=== PATIENT | male | born 1955 | race Caucasian/White ===

== ENCOUNTER → 2017-12-26 09:12 | Outpatient (CLI) | payer MEDICAID, SELFPAY ==
[2017-12-26 10:21] LABS: Blood Urea Nitrogen 11 mg/dL (7-18); Creatinine,Serum 1.02 mg/dL (0.70-1.30); Estimated Glomerular Filt Rate 74 ml/min (>60); GFR (African American) 90 ML/MIN (>60)
--- NOTE | 2017-12-26 10:36 | CT_ITS ---
CT abdomen pelvis w con CLINICAL INDICATION: ITS.REASON: GROSS HEMATURIA ORDERING PHYSICIAN: Ave Kelsey PATIENT AGE: 62 years COMPARISON: None TECHNIQUE: Axial images obtained with sagittal and coronal reformats. All CT scans at the facility use one or more dose reduction, viz: automated exposure control, ma/kV adjustment per patient size (including targeted exams where dose is matched to indication, i.e. head), or iterative reconstruction technique. PROCEDURE: Oral Contrast: None IV Contrast: 75 mL's of Isovue-370. FINDINGS: Lung base images are clear. Liver, gallbladder, spleen, adrenal glands, and pancreas has an unremarkable appearance. No renal or ureteral calculus. No hydronephrosis. No renal mass. No intestinal obstruction or free air. Unremarkable appendix. No evidence of diverticulitis. No pelvic mass or abnormal fluid collection. 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 Sclerosis of left femoral head also noted consistent with avascular necrosis. These findings are somewhat worse on the right and unchanged on the left. There is mild thickening of the urinary bladder anteriorly and may be due to nondistention. IMPRESSION: 1. No renal mass renal calculi or ureteral calculi. 2. 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 Left femoral avascular necrosis also suspected not significant changed
== END ==
PROVIDERS: PCP Nurse Practitioner Family; Visit Provider Nurse Practitioner Family
DX: R31.0 Gross hematuria (principal)
CPT/HCPCS: 36415; 74177; 82565; 84520; Q9967

== ENCOUNTER → 2018-01-09 14:56 | Outpatient (CLI) | payer MEDICAID, SELFPAY ==
--- NOTE | 2018-01-09 15:02 | XR_ITS ---
XR hip RT 2-3V w/pelvis HISTORY: ITS.REASON: IDIOPATHIC ASEPTIC NECROSIS BILAT FEMUR ORDERING PHYSICIAN: Ave Kelsey PATIENT AGE: 62 years COMPARISON: 12/26/2017 FINDINGS: Cortical collapse noted involving the right femoral head with mixture of sclerosis and lucency in the subchondral region consistent with advanced avascular microcyst with some mild dysplastic changes of the femoral head with osteoarthritic changes of the right hip. IMPRESSION: Advanced avascular necrosis of the right femoral head with associated dysplastic changes and osteoarthritis of the right hip. This would represent a Ficat st6ge 4 avascular necrosis of the femoral head
--- NOTE | 2018-01-09 15:02 | XR_ITS ---
XR hip LT 2-3V w/pelvis HISTORY: ITS.REASON: IDIOPATHIC ASEPTIC NECROSIS BILAT FEMUR ORDERING PHYSICIAN: Ave Kelsey PATIENT AGE: 62 years COMPARISON: None FINDINGS: No fracture or dislocation is evident. No significant degenerative change. No subchondral lucency evident. There is minimal sclerosis of the left femoral head corresponding to the CT abnormality. This is better delineated on the CT. IMPRESSION: Minimal sclerosis of left femoral head which may be due to early avascular necrosis MRI may confirm
== END ==
PROVIDERS: PCP Nurse Practitioner Family; Visit Provider Nurse Practitioner Family
DX: M87.052 Idiopathic aseptic necrosis of left femur (principal); M87.051 Idiopathic aseptic necrosis of right femur
CPT/HCPCS: 73502

== ENCOUNTER → 2018-02-01 08:49 | Outpatient (CLI) | payer MEDICAID, SELFPAY ==
--- NOTE | 2018-02-01 08:54 | MR_ITS ---
MR hip LT wo con Ordering Physician: Ken Jacobsen MD Patient Age: 62 years: Male HISTORY: ITS.REASON: IDIOPATHIC ASEPTIC NECROSIS OF LEFT FEMUR Bilateral AVN hip pain TECHNIQUE: Multiplanar multisequence imaging includes both hips; but attention and additional sagittal views of left hip included COMPARISON :CT abdomen/pelvis December 26, [address] August 2015 FINDINGS severe AVN right hip and arthritic changes right hip. Mild AVN left hip, with left hip joint space maintained Right hip. Findings reflect with Sequela of prominent long-standing AVN right hip. Flattening,, collapse & deformity of the superior aspect of broad deformed right femoral head. Prominent large geographic area of abnormal signal basically matches the prominent radiographic abnormality at superior right femoral head seen on plain film. There also appear to be prominent degenerative arthritic changes right hip joint which have since subsequent, developed & yields additional features including severe joint space right hip narrowing, with resulting numerous generous subchondral subchondral cystic changes femoral head as well as roof of acetabulum., But also generous marginal osteophytes about the margin of the femoral head and hypertrophic lipping about the right acetabulum. The features yield abnormal signal not only involving femoral head but extending into the superior right femoral neck. Mild right joint effusion... Markedly deforming femoral head were also nicely seen on plain films from January 09 2018. & Majority of these findings are seen in 2016 only question slight additional progressive flattening the femoral head in the interval.. Today's study was performed primarily to evaluate left hip. . Left hip also demonstrates smaller area of Long-standing AVN is seen at superior left femoral head..... Femoral head contour remains normal. No flattening. No no collapse.. Hip joint space well maintained.. AVN is been present at left hip since on CTs 2015/2017 with I believe similar distribution pattern. No significant progression. Again area signal abnormality associated spanning the superior aspect of the femoral head (nicely demonstrated on sagittal images 02/19) ; with coronal view showed a smaller geographic area of abnormal extending to the cortex superior femoral head . Left hip joint spaces is well maintained with only borderline narrowing.. . The remainderosseous pelvis visualized appears satisfactory. Inferior sacrum included. Unremarkable. Only the inferior aspect of the SI joints and sacrum are included on axial views but unremarkable. No pelvic mass or fluid. Bladder wall upper normal thickness. IMPRESSION 1. Severe extensive changes/sequela of long-standing AVN Right Hip/Right Femoral Head. Flattening, collapse of superior right femoral head with severe ensuing arthritic changes right hip (Majority of these findings more present in 2016 with only slight interval progression.) 2.. Much Smaller area of long-standing AVN superior left hip/left femoral head .... Left femoral head remains normal contour. Left hip joint space fairly well maintained. ... Fairly Similar Size & distribution of left AVN I believe since 2016 CT
== END ==
PROVIDERS: PCP Nurse Practitioner Family; Visit Provider Family Medicine
DX: M87.052 Idiopathic aseptic necrosis of left femur (principal)
CPT/HCPCS: 73721

== ENCOUNTER → 2018-02-15 14:50 | Outpatient (CLI) | payer MEDICAID, SELFPAY ==
--- NOTE | 2018-02-15 14:55 | XR_ITS ---
XR chest 2V HISTORY: ITS.REASON: CHEST PAIN ORDERING PHYSICIAN: Ave Kelsey PATIENT AGE: 62 years COMPARISON: 11/30/2016 FINDINGS: The cardiomediastinal silhouette and pulmonary vascularity are within normal limits. The lungs are clear without infiltrates, suspicious nodules, or pleural effusions. The trachea is to the right of midline however the neck is tilted to the right and there is mild upper thoracic scoliosis convex left. No acute bony abnormalities. IMPRESSION: No acute finding
== END ==
PROVIDERS: PCP Nurse Practitioner Family; Visit Provider Nurse Practitioner Family
DX: R07.9 Chest pain, unspecified (principal)
CPT/HCPCS: 71046

== ENCOUNTER → 2018-08-07 14:12 | Outpatient (CLI) | payer MEDICAID, SELFPAY ==
[2018-08-07 16:27] LABS: Prostate Specific Ag Screen 1.4 ng/mL (0.0-4.0)
== END ==
PROVIDERS: Visit Provider Urology
DX: Z12.5 Encounter for screening for malignant neoplasm of prostate (principal); C61 Malignant neoplasm of prostate
CPT/HCPCS: 36415; G0103

== ENCOUNTER → 2018-10-23 16:12 | Outpatient (CLI) | payer MEDICAID, SELFPAY ==
--- NOTE | 2018-10-23 16:16 | XR_ITS ---
XR finger LT min 2V CLINICAL INDICATION: ITS.REASON: MASS OF FINGER OF LEFT HAND ORDERING PHYSICIAN: Ave Kelsey APRN PATIENT AGE: 63 years Comparison: None FINDINGS: No bony or joint abnormality. No soft tissue calcification or other significant anomalies IMPRESSION: Negative left fifth finger.
== END ==
PROVIDERS: PCP Nurse Practitioner Family; Visit Provider Nurse Practitioner Family
DX: R22.32 Localized swelling, mass and lump, left upper limb (principal)
CPT/HCPCS: 73140

== ENCOUNTER → 2019-05-16 13:40 | Outpatient (CLI) | payer OTHER, SELFPAY ==
--- NOTE | 2019-05-16 13:48 | XR_ITS ---
PROCEDURE: XR CHEST 2V CLINICAL HISTORY: COUGH COMPARISON: CXR CHEST(2 VIEWS-NOT PORTABLE) from 11/30/2016 CXR2V XR chest 2V from 02/15/2018 FINDINGS: The cardiomediastinal silhouette and pulmonary vascularity are within normal limits. The lungs are clear without infiltrates, suspicious nodules, or pleural effusions. There is mild biapical pleural thickening IMPRESSION: No change with no acute finding Dictated by: Sreedhar Melendez MD 05/16/2019 15:17 Electronically signed by Sreedhar Melendez MD in [place] 05/16/2019 15:17
== END ==
PROVIDERS: PCP Nurse Practitioner Family; Visit Provider Nurse Practitioner Family
DX: R05 Cough (principal)
CPT/HCPCS: 71046

== ENCOUNTER → 2020-01-08 07:45 | Outpatient (CLI) | payer OTHER, SELFPAY ==
--- NOTE | 2020-01-08 07:49 | CT_ITS ---
PROCEDURE: CT ABDOMEN PELVIS WO CON CLINICAL INDICATION: gross hematuria,rt flank pain hematuria x months COMPARISON: CT ABDPELW CT abdomen pelvis w con from 12/26/2017 TECHNIQUE: Axial images obtained with sagittal and coronal reformats. All CT scans at the facility use one or more dose reduction, viz: automated exposure control, ma/kV adjustment per patient size (including targeted exams where dose is matched to indication, i.e. head), or iterative reconstruction technique. FINDINGS: LOWER THORAX: No acute finding ABDOMEN & PELVIS: The liver, gallbladder, spleen, adrenal glands, pancreas, and kidneys have an unremarkable unenhanced appearance. There is mild thickening of the body and fundus of the stomach which is nonspecific. There is mild haziness of the central mesenteric fat. Unremarkable appendix. No evidence of intestinal obstruction free air or diverticulitis. The prostate is slightly prominent at 5 cm. Urinary bladder is mildly thickened possibly due to nondistention. Severe longstanding avascular necrosis with cortical collapse of the femoral head on the right once again noted with associated osteoarthritic changes not significantly changed. Subchondral sclerosis of the left femoral head consistent with avascular necrosis also not significantly changed. IMPRESSION: 1. No acute abdominal or pelvic findings. 2. Nonspecific thickening of the stomach which may be due to nondistention versus gastritis. 3. Mild haziness of the central mesenteric fat not significantly changed which could be seen with edema or inflammatory changes 4. Mild prominence of the prostate. Urinary bladder wall is slightly thickened which may be due to nondistention or cystitis. 5. Bilateral avascular necrosis of the hips more extensive on the right. Dictated by: Sreedhar Melendez MD 01/09/2020 08:45 Sreedhar Melendez MD in [place] 01/09/2020 08:45
== END ==
PROVIDERS: PCP Nurse Practitioner Family; Visit Provider Urology
DX: R31.0 Gross hematuria (principal); R10.9 Unspecified abdominal pain
CPT/HCPCS: 74176

== ENCOUNTER → 2021-06-24 14:08 | Outpatient (CLI) | payer OTHER, SELFPAY ==
--- NOTE | 2021-06-24 14:14 | XR_ITS ---
FINAL REPORT CLINICAL HISTORY: TOBACCO USE right back pain COMPARISON: May 16, 2019 FINDINGS: Two views of the chest were obtained. The heart size and pulmonary vascularity are within normal limits. The mediastinum is normal. No acute pulmonary abnormality is identified. There is no pneumothorax. The bony thorax is intact. IMPRESSION: No active cardiopulmonary disease. Reviewed, Interpreted and Dictated by Blake Constantino III, MD Transcribed by Maryjane Burton Authenticated by Blake Constantino III, MD on 06/24/2021 03:04:53 PM [facility]
== END ==
PROVIDERS: PCP Nurse Practitioner Family; Visit Provider Nurse Practitioner Family
DX: Z72.0 Tobacco use (principal)
CPT/HCPCS: 71046

== ENCOUNTER → 2021-07-20 14:12 | Outpatient (POV) | payer OTHER, SELFPAY ==
[2021-07-20 14:35] VITALS: BP 133/66; PULSE 75; RESP 18; TEMP 36.6; O2SAT 97; BMI 20.9
--- NOTE | 2021-07-20 14:52 | HMH.PMCON ---
Assessment and Plan (1) Osteoarthritis of right hip Status: Acute Category: Medical Code(s): M16.11 - Unilateral primary osteoarthritis, right hip (2) Sacroiliitis Status: Acute Category: Medical Code(s): M46.1 - Sacroiliitis, not elsewhere classified (3) Lumbar back pain with radiculopathy affecting right lower extremity Status: Acute Category: Medical Code(s): M54.16 - Radiculopathy, lumbar region - Assessment and plan all Dx Assessment and Plan for all problems:: This patient is a very pleasant 65-year-old white male who comes to our clinic today with complaint of right hip pain both anteriorly and posteriorly at times. Patient has had care with orthopedic surgery in the past including right hip intra-articular injections. Patient states the hip injections did help for some time. However, at some point they stopped helping. Patient was advised regarding right hip replacement. However, patient is not interested in having any surgery at this time. He comes to our clinic continue to complain of right hip pain posterior greater than anterior. Upon examination he has extreme point tenderness over the right SI joint. I discussed in detail the difference from the SI joint and the right hip joint. We could try a right SI joint injection to see if this calms down the pain. I instructed the patient and his that if this did not help then we would move forward with second opinion on the hip and/or lumbar MRI imaging. HPI - Data of Consult Consult date: 07/20/21 Requesting Physician: Kaleb Baker CRNA - Consult Narrative Reason for consult: Lumbar back pain. Left posterior hip pain. History of present illness: Mr. Murphy is a 65 year old male CC: Kaleb Baker CRNA [facility] History I have reviewed the patient's past medical history: Yes Medical History: Reports:: Anxiety, Cancer, Depression, Gastroesophageal Reflux Disease(GERD) Denies:: Diabetes Mellitus Type 1, Diabetes Mellitus Type 2, Internal Pacemaker, MRSA, Seizures *Have you ever received a pneumonia vaccine?: No *Have you received a flu vaccine this season?: No Other Medical History: Reports: Anemia, Sinus Problems. Denies: Blood Transfusion Reaction Laterality Cases: Bilateral: Tonsillectomy Other Surgeries: Yes: No Previous Surgery, Cancer Surgery, Colonoscopy. No: Pacemaker Amputation: No Fractures: No - *Social History Smoking Status: Current every day smoker Tobacco Type: cigarettes # Packs/Day (cigarettes): 1 #Yrs smoked (if former smoker): 0 Alcohol Intake: never Substance Use Type: denies use *Occupational Status:: disabled Housing: house Household Members: spouse *Travel in the last 8 weeks: None - Psychiatric History Pschychiatric History:: Reports:: Anxiety, Depression Family Hx:: Hypertension, Cancer, Diabetes Meds Home Medications Medication Instructions Recorded Confirmed Type benzonatate 100 mg capsule 100 mg PO TID PRN #14 cap 06/25/17 07/20/21 Rx cetirizine 10 mg capsule 10 mg PO ONCE PRN 06/25/17 07/20/21 History ferrous sulfate 325 mg (65 mg 325 mg PO ONCE tab 06/25/17 07/20/21 History iron) tablet folic acid 20 mg capsule 20 mg PO ONCE PRN 06/25/17 07/20/21 History omeprazole 20 mg capsule,delayed 20 mg PO ONCE 06/25/17 07/20/21 History release sertraline 25 mg tablet 37.5 mg PO Q24H tab 06/25/17 07/20/21 History Allergies Allergy/AdvReac Type Severity Reaction Status Date / Time meperidine [From Demerol] Allergy Intermediate I-HIVES/ITC Verified 12/31/19 13:51 H oxycodone [From Percocet] Allergy Intermediate I-HIVES/ITC Verified 12/31/19 13:51 H Objective Vital signs: Temp Pulse Resp BP Pulse Ox 97.9 F 75 18 133/66 97 07/20/21 14:35 07/20/21 14:35 07/20/21 14:35 07/20/21 14:35 07/20/21 14:35 Opioid Risk Tool - Opioid Risk Tool-Male Family hx alcohol abuse: Y Family hx illegal drugs: Y Family hx rx drug abuse: Y Personal hx alcohol abuse: N Pe
== END ==
PROVIDERS: Visit Provider Nurse Anesthetist, Certified Registered
DX: M16.11 Unilateral primary osteoarthritis, right hip (principal); M46.1 Sacroiliitis, not elsewhere classified; M54.16 Radiculopathy, lumbar region
CPT/HCPCS: 99202; G0463

== ENCOUNTER 2021-07-23 11:24 | Day surgery (SDC) | payer OTHER, SELFPAY ==
[2021-07-23 11:32] VITALS: BP 153/53; PULSE 71; RESP 20; TEMP 36.4; O2SAT 99; BMI 20.9
[2021-07-23 11:48] VITALS: BP 133/67; PULSE 73; RESP 20; O2SAT 98
[2021-07-23 11:49] VITALS: BP 133/67; PULSE 73; RESP 20; O2SAT 99
--- NOTE | 2021-07-23 11:52 | P.PCN_ITS ---
- Procedure Date: 07/23/21 Time: 11:52 Anesthesiologist:: Kaleb Baker CRNA Complications:: None Pre-procedure Diagnosis:: Right sacroiliitis Post-procedure Diagnosis:: Same Indications for Procedure:: This patient is a pleasant 65-year-old white male that I saw earlier in the week in our clinic for evaluation regarding posterior right hip pain. Patient has had anterior hip pain in the past with intra-articular hip injections which have helped to some degree. However the last injection into the hip joint was not successful. Upon examination in the office patient has extreme point tenderness over the right SI joint. I discussed at length with him and his regarding the SI joint pain. Could be causing some anterior hip pain as well. Patient describes the pain as constant, dull, aching. Patient states the pain increases when trying to ambulate any sort of distance. He rates the pain 9/10. Procedure Details:: Procedure: Right sacroliliac joint injection under fluoroscopy Informed consent was obtained and the risk and benefits of the procedure were explained to the patient.~ The patient was taken to the procedure room and noninvasive monitors were placed including noninvasive blood pressure cuff and pulse oximeter.~ The patient was placed prone on the procedure table.~ The~ right hip was cleansed using Betadine as a cleansing solution.~ C-arm fluorosocpy was used to view the right SI joint.~ The skin and subcutaneous tissues were anesthetized using Lidocaine 1.5% and a 25-gauge needle.~ After this, a 22-gauge spinal needle was inserted under fluoroscopic guidance into the inferior aspect of the right SI joint.~ Omnipaque dye was injected and a good spread was seen throughout the joint.~ After this, approximately 5 mL of bu pivacaine 0.25% and Depo-Medrol 40 mg was incrementally injected into the sacroiliac joint.~ The patient tolerated the procedure well with no complications.~ The patient was observed in the Pain Clinic, then discharged home neurologically intact.~ Plan and Disposition:: Patient will follow up with us in the clinic for further evaluation.
[2021-07-23 11:53] VITALS: BP 156/72; PULSE 63; RESP 18; O2SAT 99
== END 2021-07-23 11:53 | disposition home or self-care (01) ==
LOC: SC.PAINP 11:25
PROVIDERS: PCP Nurse Practitioner Family; Visit Provider Nurse Anesthetist, Certified Registered
DX: M46.1 Sacroiliitis, not elsewhere classified (principal); M54.16 Radiculopathy, lumbar region; K21.9 Gastro-esophageal reflux disease without esophagitis; F41.9 Anxiety disorder, unspecified; F32.A Depression, unspecified; Z85.9 Personal history of malignant neoplasm, unspecified
CPT/HCPCS: 27096; G0260; J1040

== ENCOUNTER → 2021-08-30 11:16 | Outpatient (POV) | payer OTHER, SELFPAY ==
[2021-08-30 12:40] VITALS: BP 124/58; PULSE 73; RESP 18; TEMP 36.3; O2SAT 97; BMI 20.9
--- NOTE | 2021-08-30 14:35 | HMH.PAINSOAP ---
[facility] Pain Management SOAP Note Subjective:: Patient is a pleasant 65-year-old male who presents today for follow-up after a right SI injection. Patient is currently being treated for osteoarthritis of the right hip, right-sided sacroiliitis, chronic low back pain. After the procedure, patient had significant relief for about 80 to 90% that lasted for a week. Denies any issues after the procedure. Patient says that he was able to increase his activity during this 1 week of relief. Today, patient says that he has been having right upper buttock pain that radiates to his right leg. He cannot tolerate any prolonged activity such as sitting, standing, and walking. Rates pain today 7 out of 10. Patient was seen orthopedics who recommends right hip replacement. Patient states that he is not ready for any surgical intervention at this time. Review of Systems: General: No recent weight changes, no fever, no sleep disturbances Respiratory: No cough, no shortness of air, no recurring pulmonary infections Cardiovascular/peripheral vascular: No chest pain, no palpitations, no edema, no shortness of breath Gastrointestinal: No new onset incontinence, normal bowel movements reported Genitourinary: No new onset incontinence Musculoskeletal: Right hip pain Psychiatric: [Normal mood/affect] Neurological: [Denies weakness in extremities], [denies balance issues] Objective:: Physical Exam: General: Alert and oriented x3, no acute distress, pleasant and cooperative Lungs: Respirations even and unlabored, symmetrical chest expansion Eyes: PERRL Musculoskeletal: Limited range of motion of the right hip secondary to pain, right SI is positive for AMANDA, Rc's, Greenfield's, Gaenslen's, compression, and distraction. Neurological: Speech clear, no gross sensory deficit Assessment:: Sacroiliitis, osteoarthritis of the right hip Plan:: Patient is significant relief after the right SI injection that lasted for a week. Patient has tried and failed conservative therapy such as oral medication, physical therapy, and home exercises. We will schedule the patient for a repeat right SI injection. Risks and benefits of the procedure have been explained to the patient. Patient would like to proceed with the procedure. I will also start the patient on meloxicam 15 mg daily. Patient was taking Duexis that was helping him significantly however his insurance will not cover this medication. If the patient continues to get temporary relief after the right SI injection, patient might have to consider moving forward with surgical interventions. For our clinic, we can either do a right-sided SI RFA or a sacroiliac joint stabilization procedure. Patient has been instructed to contact the clinic with any concerns before the next appointment. Dr. Alonso has reviewed this note and agrees with this plan of care. This note was dictated using voice recognition software and make contain errors or omissions. [facility] History Medical History: Reports:: Anxiety, Cancer, Depression, Gastroesophageal Reflux Disease(GERD) Denies:: Diabetes Mellitus Type 1, Diabetes Mellitus Type 2, Internal Pacemaker, MRSA, Seizures *Have you ever received a pneumonia vaccine?: No *Have you received a flu vaccine this season?: No Other Medical History: Reports: Anemia, Sinus Problems. Denies: Blood Transfusion Reaction Laterality Cases: Bilateral: Tonsillectomy Other Surgeries: Yes: No Previous Surgery, Cancer Surgery, Colonoscopy. No: Pacemaker Amputation: No Fractures: No - *Social History Smoking Status: Current every day smoker Tobacco Type: cigarettes # Packs/Day (cigarettes): 1 #Yrs smoked (if former smoker): 0 Alcohol Intake: never Substance Use Type: denies use *Occupational Status:: unemployed Housing: house Household Members: spouse *Travel in the last 8 weeks: None - Psychiatric History Pschychiatric History:: Reports:: Anxiety, Depression Family Hx:: No significant family his
== END ==
PROVIDERS: Visit Provider Student in an Organized Health Care Education/Training Program
DX: M46.1 Sacroiliitis, not elsewhere classified (principal); M16.11 Unilateral primary osteoarthritis, right hip
CPT/HCPCS: 99212; G0463

== ENCOUNTER 2021-09-03 13:43 | Day surgery (SDC) | payer OTHER, SELFPAY ==
[2021-09-03 14:16] VITALS: BP 105/55; BP 135/58; PULSE 69; PULSE 70; RESP 18; RESP 20; TEMP 36.4; O2SAT 99; BMI 20.9
[2021-09-03 14:30] VITALS: BP 107/55; PULSE 67; RESP 18; O2SAT 98
--- NOTE | 2021-09-03 14:33 | HMH.PMPROC ---
- Procedure Date: 09/03/21 Time: 14:33 Anesthesiologist:: Jonathan Alonso MD Complications:: None Pre-procedure Diagnosis:: Sacroiliitis Post-procedure Diagnosis:: Same Indications for Procedure:: Patient is a pleasant 65-year-old white male who we are treating for right-sided hip pain. He is tender over the right SI joint. He has a positive Julia's test on the right side. He has a positive Tiara test on the right side. He has positive SI joint compression test on the right side. He presents for right SI joint injection under fluoroscopy today. Procedure Details:: Right SI joint injection under fluoroscopy Informed consent was obtained and the risks and benefits of the procedure was going to the patient. Patient was taken to the procedure room. Patient was placed prone on the procedure table. The right hip was prepped using ChloraPrep. The skin and subcutaneous tissues were anesthetized using lidocaine. I placed a 22-gauge spinal needle into the inferior aspect of the right SI joint. Needle placement was confirmed with dye. After this we injected 5 mL bupivacaine 0.25% and Depo-Medrol 40 mg into the right SI joint. The patient tolerated the procedure well with no complication. Plan and Disposition:: We will follow-up with him in 2 weeks. Will reevaluate symptoms at that time.
[2021-09-03 14:34] VITALS: BP 107/55; PULSE 74; RESP 18; O2SAT 98
== END 2021-09-03 14:38 | disposition home or self-care (01) ==
LOC: SC.PAINP 13:44
PROVIDERS: PCP Nurse Practitioner Family; Visit Provider Anesthesiology
DX: M46.1 Sacroiliitis, not elsewhere classified (principal); F41.9 Anxiety disorder, unspecified; F32.A Depression, unspecified; K21.9 Gastro-esophageal reflux disease without esophagitis; Z85.9 Personal history of malignant neoplasm, unspecified; Z72.0 Tobacco use; M19.90 Unspecified osteoarthritis, unspecified site
CPT/HCPCS: 27096; G0260; J1040; Q9966

== ENCOUNTER → 2021-09-23 13:31 | Outpatient (POV) | payer MEDICARE, OTHER, SELFPAY ==
[2021-09-23 13:47] VITALS: BP 120/59; PULSE 77; RESP 18; TEMP 36.6; O2SAT 97; BMI 20.9
--- NOTE | 2021-09-23 15:21 | HMH.PAINSOAP ---
[facility] Pain Management SOAP Note Subjective:: Patient is a pleasant 65-year-old male who presents today for follow-up after a right SI injection on 09/03/2021. Patient is currently being treated for sacroiliitis, right hip pain, osteoarthritis of the right hip. After the procedure, patient had significant relief of 90 to 100%. Patient has been able to increase his activity since the injection. He rates his pain today as 4 out of 10. He is also being managed with meloxicam 15 mg daily. Patient states that he has had significant relief with this medication. Denies any side effects from this medication. He is requesting refills on this medication. He is not on any scheduled medications. Patient has also seen orthopedics who recommends a right hip replacement. Patient states that he does not want to move forward with any surgical intervention at this time. He has had intra-articular hip injections in the past that provided 2 to 3 months of relief. He has not had this injection in a while. Review of Systems: General: No recent weight changes, no fever, no sleep disturbances Respiratory: No cough, no shortness of air, no recurring pulmonary infections Cardiovascular/peripheral vascular: No chest pain, no palpitations, no edema, no shortness of breath Gastrointestinal: No new onset incontinence, normal bowel movements reported Genitourinary: No new onset incontinence Musculoskeletal: Right hip pain Psychiatric: [Normal mood/affect] Neurological: [Denies weakness in extremities], [denies balance issues] Objective:: Physical Exam: General: Alert and oriented x3, no acute distress, pleasant and cooperative Lungs: Respirations even and unlabored, symmetrical chest expansion Eyes: PERRL Musculoskeletal: Limited range of motion of the right hip secondary to pain Neurological: Speech clear, no gross sensory deficit Assessment:: Sacroiliitis, osteoarthritis of the right hip, chronic right hip pain Plan:: Patient is significant relief after the right SI injection. He continues to have relief with this injection today. Rates his pain as 4 out of 10. In regards to his right hip, I discussed with the patient that we can certainly do intra-articular hip injections in our clinic. He states that in the past, they have did his hip injection medially/through his right groin. He states that he had discomfort for weeks after than injection. He was wondering if he ever schedules a hip injection, he would like a more lateral approach. We will refill his meloxicam 15 mg daily. We will provide 3 months worth of refill. Patient has been instructed to contact the clinic with any concerns before the next appointment. Dr. Alonso has reviewed this note and agrees with this plan of care. This note was dictated using voice recognition software and make contain errors or omissions. [facility] History Medical History: Reports:: Anxiety, Cancer, Depression, Gastroesophageal Reflux Disease(GERD) Denies:: Diabetes Mellitus Type 1, Diabetes Mellitus Type 2, Internal Pacemaker, MRSA, Seizures *Have you ever received a pneumonia vaccine?: No *Have you received a flu vaccine this season?: No Other Medical History: Reports: Anemia, Arthritis, Sinus Problems. Denies: Blood Transfusion Reaction Laterality Cases: Bilateral: Tonsillectomy Other Surgeries: Yes: No Previous Surgery, Cancer Surgery, Colonoscopy. No: Pacemaker Amputation: No Fractures: No - *Social History Smoking Status: Current every day smoker Tobacco Type: cigarettes # Packs/Day (cigarettes): 1 #Yrs smoked (if former smoker): 0 Alcohol Intake: never Substance Use Type: denies use *Occupational Status:: other Housing: house Household Members: spouse *Travel in the last 8 weeks: None - Psychiatric History Pschychiatric History:: Reports:: Anxiety, Depression Family Hx:: No significant family history
== END ==
PROVIDERS: Visit Provider Student in an Organized Health Care Education/Training Program
DX: M46.1 Sacroiliitis, not elsewhere classified (principal); M16.11 Unilateral primary osteoarthritis, right hip; G89.29 Other chronic pain
CPT/HCPCS: 99212; G0463

== ENCOUNTER → 2021-10-21 13:38 | Outpatient (POV) | payer MEDICARE, OTHER, SELFPAY ==
[2021-10-21 14:06] VITALS: BP 108/59; PULSE 79; RESP 17; TEMP 36.6; O2SAT 97; BMI 20.9
--- NOTE | 2021-10-23 08:35 | HMH.PAINSOAP ---
[facility] Pain Management SOAP Note Subjective:: Patient is a pleasant 66-year-old male who presents today for follow-up. Patient is currently being treated for right-sided sacroiliitis, right hip pain, osteoarthritis of the right hip. It is managing this patient with injective therapy. He has had an SI injection on the right side on 09/03/2021 that provided 90 to 100% relief. He does still have pain in his hip from his osteoarthritis. He has been evaluated by orthopedics who recommends right hip replacement. He is not interested in moving forward with any surgical intervention at this time. He states that he had intra-articular hip injections in the past that provided 2 to 3 months of relief. Is wanting to know if we can schedule this injection today. For his pain, we have started this patient on meloxicam 15 mg daily. He continuously take this medication as prescribed and is helping manage his pain. He rates his pain as 3 out of 10. He is also requesting refills on this medication. He is not on any scheduled medications. [facility] [id number]. Review of Systems: General: No recent weight changes, no fever, no sleep disturbances Respiratory: No cough, no shortness of air, no recurring pulmonary infections Cardiovascular/peripheral vascular: No chest pain, no palpitations, no edema, no shortness of breath Gastrointestinal: No new onset incontinence, normal bowel movements reported Genitourinary: No new onset incontinence Musculoskeletal: Right hip pain Psychiatric: [Normal mood/affect] Neurological: [Denies weakness in extremities], [denies balance issues] Objective:: Physical Exam: General: Alert and oriented x3, no acute distress, pleasant and cooperative Lungs: Respirations even and unlabored, symmetrical chest expansion Eyes: PERRL Musculoskeletal: Limited range of motion of the right hip secondary to pain Neurological: Speech clear, no gross sensory deficit Assessment:: Osteoarthritis of the right hip, sacroiliitis Plan:: Patient continues to have pain in his right hip. We will schedule the patient for a right hip intra-articular injection. In the past, patient states that they did the intra-articular hip injection medially that has caused him some discomfort for weeks after the injection. He is wanting to know if we can do his intra-articular hip injection with a lateral approach. We will refill the patient's meloxicam 15 mg daily. Patient has been instructed to contact the clinic with any concerns before the next appointment. Dr. Alonso has reviewed this note and agrees with this plan of care. This note was dictated using voice recognition software and make contain errors or omissions. [facility] History Medical History: Reports:: Anxiety, Cancer, Depression, Gastroesophageal Reflux Disease(GERD) Denies:: Diabetes Mellitus Type 1, Diabetes Mellitus Type 2, Internal Pacemaker, MRSA, Seizures *Have you ever received a pneumonia vaccine?: No *Have you received a flu vaccine this season?: No Other Medical History: Reports: Anemia, Arthritis, Sinus Problems. Denies: Blood Transfusion Reaction Laterality Cases: Bilateral: Tonsillectomy Other Surgeries: Yes: No Previous Surgery, Cancer Surgery, Colonoscopy. No: Pacemaker Amputation: No Fractures: No - *Social History Smoking Status: Current every day smoker Tobacco Type: cigarettes # Packs/Day (cigarettes): 1 #Yrs smoked (if former smoker): 0 Alcohol Intake: never Substance Use Type: denies use *Occupational Status:: other Housing: house Household Members: spouse *Travel in the last 8 weeks: None - Psychiatric History Pschychiatric History:: Reports:: Anxiety, Depression Family Hx:: No significant family history
== END ==
PROVIDERS: Visit Provider Student in an Organized Health Care Education/Training Program
DX: M46.1 Sacroiliitis, not elsewhere classified (principal); M16.11 Unilateral primary osteoarthritis, right hip
CPT/HCPCS: 99212; G0463

== ENCOUNTER 2021-12-07 12:35 | Day surgery (SDC) | payer MEDICARE, OTHER, SELFPAY ==
[2021-12-07 12:41] VITALS: BP 113/71; BP 119/64; PULSE 64; PULSE 74; RESP 20; TEMP 36.5; O2SAT 97; O2SAT 99; BMI 19.6
[2021-12-07 12:58] VITALS: BP 116/62; PULSE 70
[2021-12-07 13:12] VITALS: BP 117/80; PULSE 70; RESP 18; O2SAT 99
--- NOTE | 2021-12-07 13:15 | P.PCN_ITS ---
Procedure Date: 12/07/21 Time: 13:15 Anesthesiologist:: Kaleb Baker CRNA Complications:: None Pre-procedure Diagnosis:: Osteoarthritis right hip Post-procedure Diagnosis:: Same Indications for Procedure:: Patient is a pleasant 66-year-old male who comes to our clinic today for his initial right intra-articular hip injection. He reports pain right hip at all times. Pain increases with ambulation. He rates his pain 8/10. Procedure Details:: Details of the procedure were explained to the patient. The patient taken the procedure room placed in the supine position. The over the right groin was cleaned using chlorhexidine as a cleansing solution. Using fluoroscopy guidance a 3 and half inch 22-gauge spinal needle was used and the anterior approach to access the right hip joint. After negative aspiration 6 cc of solution was inj ected. This was 3 cc of 1% lidocaine +2 cc of 0.25% Marcaine and 40 mg of Depo- Medrol. Patient tolerated procedure without difficulty. There are no complications. Plan and Disposition:: Patient was discharged without incident.
--- NOTE | 2021-12-07 13:33 | US_ITS ---
FINAL REPORT TECHNIQUE: Sonographic images were obtained of the retroperitoneum. CLINICAL HISTORY: OTHER URINARY INCONTINENCE HX OF BLADDER FINDINGS: The right kidney measures 9.6 cm. The left kidney measures 10.3 cm. There is no evidence of renal mass or hydronephrosis. The spleen measures within normal limits. IMPRESSION: No acute process. Reviewed, Interpreted and Dictated by Blake Constantino III, MD Transcribed by Amrit Emmanuel Authenticated and [facility]
--- NOTE | 2021-12-07 13:41 | US_ITS ---
FINAL REPORT TECHNIQUE: Sonographic images were obtained of the urinary bladder. CLINICAL HISTORY: OTHER URINARY INCONTINENCE; history of bladder cancer FINDINGS: The urinary bladder measures 3.6 x 3.7 x 3.0 cm. Patient states they were unable to fill the bladder any further. There is bladder wall thickening that may be inflammatory. A left ureteral jet is visualized. IMPRESSION: Small volume bladder of uncertain significance. Reviewed, Interpreted and Dictated by Blake Constantino III, MD Transcribed by Amrit Emmanuel Authenticated and . [facility]
== END 2021-12-07 13:21 | disposition home or self-care (01) ==
PROVIDERS: PCP Nurse Practitioner Family; Visit Provider Nurse Anesthetist, Certified Registered
DX: M16.11 Unilateral primary osteoarthritis, right hip (principal)
CPT/HCPCS: 20610; 76770; 76857; J1040

== ENCOUNTER → 2021-12-23 13:18 | Outpatient (POV) | payer MEDICARE, OTHER, SELFPAY ==
[2021-12-23 13:36] VITALS: BP 109/61; PULSE 73; RESP 18; TEMP 36.6; O2SAT 97; BMI 19.6
--- NOTE | 2021-12-23 14:08 | EXP.PAIN.SOA ---
[facility] Pain Management SOAP Note Subjective:: Patient is a pleasant 66-year-old male who presents today for follow-up of right hip intra-articular injection on 12/07/2021. We are currently treating the patient for osteoarthritis of his right hip. Patient states that he has had significant improvement following this injection. He states he has had 80 to 90% relief of his pain symptoms and feels like it is continuing to help. Today the patient rates his pain a 2 out of 10. He states his pain is tolerable and primarily in his right hip. Patient has been able to increase his activity and ADLs following this injection. Patient typically uses a cane for ambulation however states that he has been able to use this less frequently and appears today in office without this device. Patient is not on any scheduled medications. He does state he uses meloxicam as needed to help with his symptoms. Patient denies any side effects to this medication. He states this medication does work well. His Jaun is [id number]. It has been reviewed and appropriate. Review of Systems: General: No recent weight changes, no fever, no sleep disturbances Respiratory: No cough, no shortness of air, no recurring pulmonary infections Cardiovascular/peripheral vascular: No chest pain, no palpitations, no edema, no shortness of breath Gastrointestinal: No new onset incontinence, normal bowel movements reported Genitourinary: No new onset incontinence Musculoskeletal: Right hip pain Psychiatric: [Normal mood/affect] Neurological: [Denies weakness in extremities], [denies balance issues] Objective:: Physical Exam: General: Alert and oriented x3, no acute distress, pleasant and cooperative Lungs: Respirations even and unlabored, symmetrical chest expansion Eyes: PERRL Musculoskeletal: Flexion and extension of right hip somewhat guarded secondary to pain, [antalgic gait noted] Neurological: Speech clear, no gross sensory deficit Assessment:: Osteoarthritis right hip Plan:: Patient has had significant improvement of his pain symptoms in his right hip following his intra-articular hip injection. At this time the patient is not needing additional injective therapy. We will follow-up with the patient in 1 month. Patient will return to clinic in 1 month for reevaluation of symptoms. Patient has been instructed to contact the clinic with any concerns before the next appointment. Dr. Alonso has reviewed this note and agrees with this plan of care. This note was dictated using voice recognition software and make contain errors or omissions. [facility] Medical History (Updated 12/07/21 @ 12:48 by Marie Kapadia RN) Bladder cancer Depression Social History Smoking Status: Current every day smoker tobacco type: cigarettes packs per day: 1 second hand exposure: Yes alcohol intake: never substance use type: denies use current occupational status: other Travel in the last 8 weeks: None household members: spouse housing: house current occupational exposures/hazards: No caffeine: No
== END ==
PROVIDERS: PCP Nurse Practitioner Family; Visit Provider Nurse Practitioner Family
DX: M16.11 Unilateral primary osteoarthritis, right hip (principal); Z72.0 Tobacco use; Z79.899 Other long term (current) drug therapy
CPT/HCPCS: 99212; G0463

== ENCOUNTER → 2022-01-20 13:28 | Outpatient (POV) | payer MEDICARE, OTHER, SELFPAY ==
[2022-01-20 13:56] VITALS: BP 111/61; PULSE 68; RESP 18; TEMP 36.6; O2SAT 97; BMI 19.6
--- NOTE | 2022-01-20 15:05 | EXP.PAIN.SOA ---
[facility] Pain Management SOAP Note Subjective:: Patient is a pleasant 66-year-old male who is here for medication refill and follow-up. Patient is currently being treated for osteoarthritis of the right hip. Patient is being managed with meloxicam 15 mg daily. We also have been managing the patient with injective therapy. He had his last right hip intra-articular injection on 12/07/2021. Still having significant relief from this. Patient denies any side effects from the medications. Patient denies any changes to the location and type of pain. Patient states that this is adequately helping manage their pain. Rates pain as 4 out of 10. [facility] number [id number]; patient is not on any scheduled medications. Drug screens have been reviewed and appropriate. Review of Systems: General: No recent weight changes, no fever, no sleep disturbances Respiratory: No cough, no shortness of air, no recurring pulmonary infections Cardiovascular/peripheral vascular: No chest pain, no palpitations, no edema, no shortness of breath Gastrointestinal: No new onset incontinence, normal bowel movements reported Genitourinary: No new onset incontinence Musculoskeletal: Right hip pain Psychiatric: [Normal mood/affect] Neurological: [Denies weakness in extremities], [denies balance issues] Objective:: Physical Exam: General: Alert and oriented x3, no acute distress, pleasant and cooperative Lungs: Respirations even and unlabored, symmetrical chest expansion Eyes: PERRL Musculoskeletal: Limited range of motion of the right hip secondary to pain Neurological: Speech clear, no gross sensory deficit Assessment:: Osteoarthritis of the right hip Plan:: We will continue the patient's meloxicam 15 mg daily. We will provide the patient with 2 months worth of refill. We will follow-up with the patient in 2 months. Patient is still having significant relief from his right hip intra-articular injection. Patient has been instructed to contact the clinic with any concerns before the next appointment. Dr. Alonso has reviewed this note and agrees with this plan of care. This note was dictated using voice recognition software and make contain errors or omissions. [facility] Medical History (Updated 12/07/21 @ 12:48 by Marie Kapadia RN) Bladder cancer Depression Social History Smoking Status: Current every day smoker tobacco type: cigarettes packs per day: 1 second hand exposure: Yes alcohol intake: never substance use type: denies use current occupational status: retired Travel in the last 8 weeks: None household members: spouse housing: house current occupational exposures/hazards: No caffeine: No
== END | disposition home or self-care (01) ==
PROVIDERS: Visit Provider Student in an Organized Health Care Education/Training Program
DX: M16.11 Unilateral primary osteoarthritis, right hip (principal); Z72.0 Tobacco use; Z79.899 Other long term (current) drug therapy
CPT/HCPCS: 99212; G0463

== ENCOUNTER → 2022-03-24 13:13 | Outpatient (POV) | payer MEDICARE, OTHER, SELFPAY ==
[2022-03-24 13:27] VITALS: BP 98/63; PULSE 72; RESP 18; O2SAT 98; BMI 20.3
--- NOTE | 2022-03-24 13:48 | EXP.PAIN.SOA ---
[facility] Pain Management SOAP Note Subjective:: Patient is a pleasant 66-year-old male who presents today for medication refill and follow-up. We are currently treating the patient for right hip osteoarthritis. Today the patient rates his pain a 4 out of 10. Patient denies any new trauma or injury. Patient denies any change location or type of pain he experiences. Patient is currently managed with meloxicam 15 mg daily. Patient has had in the past right hip intra-articular injections that provided significant relief. Patient is not on any scheduled medications. His Jaun is [id number]. Its been reviewed and appropriate. Review of Systems: General: No recent weight changes, no fever, no sleep disturbances Respiratory: No cough, no shortness of air, no recurring pulmonary infections Cardiovascular/peripheral vascular: No chest pain, no palpitations, no edema, no shortness of breath Gastrointestinal: No new onset incontinence, normal bowel movements reported Genitourinary: No new onset incontinence Musculoskeletal: Right hip pain Psychiatric: [Normal mood/affect] Neurological: [Denies weakness in extremities], [denies balance issues] Objective:: Physical Exam: General: Alert and oriented x3, no acute distress, pleasant and cooperative Lungs: Respirations even and unlabored, symmetrical chest expansion Eyes: PERRL Musculoskeletal: Flexion and extension of lumbar [spine] somewhat guarded secondary to pain, [antalgic gait noted] Neurological: Speech clear, no gross sensory deficit Assessment:: Right hip osteoarthritis Plan:: Patient continues to experience pain in his right hip however he is doing well with his current medication regimen. I will refill the patient's meloxicam 15 mg daily and provide a 3-month supply of this medication. Patient will return to clinic in 3 months for reevaluation of symptoms, medication refill and follow-up. Patient has been instructed to contact the clinic with any concerns before the next appointment. Dr. Alonso has reviewed this note and agrees with this plan of care. This note was dictated using voice recognition software and make contain errors or omissions. [facility] Disclaimer: The information contained in this section may have been updated after the patient was seen, as this information can be updated by other users. Medical History (Updated 12/07/21 @ 12:48 by Marie Kapadia RN) Bladder cancer Depression Social History Smoking Status: Current every day smoker tobacco type: cigarettes packs per day: 1 second hand exposure: Yes alcohol intake: never substance use type: denies use current occupational status: retired Travel in the last 8 weeks: None household members: spouse housing: house current occupational exposures/hazards: No caffeine: No
== END ==
PROVIDERS: PCP Nurse Practitioner Family; Visit Provider Nurse Practitioner Family
DX: M16.11 Unilateral primary osteoarthritis, right hip (principal); F17.210 Nicotine dependence, cigarettes, uncomplicated
CPT/HCPCS: 99212; G0463

== ENCOUNTER → 2022-06-20 13:32 | Outpatient (POV) | payer MEDICARE, OTHER, SELFPAY ==
[2022-06-20 13:57] VITALS: BP 127/68; PULSE 74; RESP 18; O2SAT 98; BMI 20.3
--- NOTE | 2022-06-20 14:08 | EXP.PAIN.SOA ---
[facility] Pain Management SOAP Note Subjective:: Patient is a pleasant 66-year-old male who presents today for follow-up. We are currently treating the patient for right hip osteoarthritis. Today the patient rates his pain a 6 out of 10. Patient denies any new trauma or injury. Patient denies any change to location or type of pain he experiences. Patient states his hip pain does cause significant pain that interferes with his activities of daily living such as cooking and cleaning. He states it does worsen as the day goes on and frequently causes interference with his sleeping habits. He states the pain will wake him up in the middle of the night. He does describe this as a aching, throbbing sensation that is worse with increased activity. Patient has previously had intra-articular hip injections that did provide significant relief. Patient is not on any scheduled medications. His Jaun is [id number]. Its been reviewed and appropriate. Review of Systems: General: No recent weight changes, no fever, no sleep disturbances Respiratory: No cough, no shortness of air, no recurring pulmonary infections Cardiovascular/peripheral vascular: No chest pain, no palpitations, no edema, no shortness of breath Gastrointestinal: No new onset incontinence, normal bowel movements reported Genitourinary: No new onset incontinence Musculoskeletal: Right hip pain Psychiatric: [Normal mood/affect] Neurological: [Denies weakness in extremities], [denies balance issues] Objective:: Physical Exam: General: Alert and oriented x3, no acute distress, pleasant and cooperative Lungs: Respirations even and unlabored, symmetrical chest expansion Eyes: PERRL Musculoskeletal: Flexion and extension of lumbar [spine] somewhat guarded secondary to pain, [antalgic gait noted] Neurological: Speech clear, no gross sensory deficit Assessment:: Osteoarthritis right hip Plan:: Patient continues to experience significant pain in his right hip with limited range of motion. I have discussed with the patient that he may benefit from repeat intra-articular hip injections. Risk and benefits were discussed with the patient and he would like to proceed forward with this plan of care. I will also order the patient compounding cream during today's visit as well as tizanidine 4 mg at bedtime with a 14-day supply. We will schedule the patient for a right intra-articular hip injection. Patient has been instructed to contact the clinic with any concerns before the next appointment. Dr. Alonso has reviewed this note and agrees with this plan of care. This note was dictated using voice recognition software and make contain errors or omissions. [facility] Disclaimer: The information contained in this section may have been updated after the patient was seen, as this information can be updated by other users. Medical History (Updated 12/07/21 @ 12:48 by Marie Kapadia RN) Bladder cancer Depression Social History Smoking Status: Current every day smoker tobacco type: cigarettes packs per day: 1 second hand exposure: Yes alcohol intake: never substance use type: denies use current occupational status: disabled Travel in the last 8 weeks: None household members: spouse housing: house current occupational exposures/hazards: No caffeine: No
== END | disposition home or self-care (01) ==
PROVIDERS: PCP Nurse Practitioner Family; Visit Provider Nurse Practitioner Family
DX: M16.11 Unilateral primary osteoarthritis, right hip (principal)
CPT/HCPCS: 99212; G0463

== ENCOUNTER 2022-06-28 11:11 | Day surgery (SDC) | payer MEDICARE, OTHER, SELFPAY ==
[2022-06-28 11:35] VITALS: BP 119/77; PULSE 72; RESP 18; TEMP 36.6; O2SAT 99; BMI 20.3
[2022-06-28 12:08] VITALS: BP 124/51; PULSE 76; RESP 18; O2SAT 99
[2022-06-28 12:10] VITALS: BP 121/59; PULSE 61; RESP 18; O2SAT 97
[2022-06-28 12:11] VITALS: BP 121/59; PULSE 61; RESP 18; O2SAT 97
--- NOTE | 2022-06-28 12:48 | EXP.PAIN.PRO ---
Procedure Date: 06/28/22 Time: 11:50 Anesthesiologist:: Kaleb Baker CRNA Complications:: None Pre-procedure Diagnosis:: Chronic pain right hip. Osteoarthritis right hip Post-procedure Diagnosis:: Same Indications for Procedure:: Patient is a pleasant 66-year-old male that comes our clinic today for right intra-articular hip injection. Patient describes his hip pain as constant, dull, aching. He rates the pain 7/10. Patient has difficulty with ambulation. Procedure Details:: Details of the procedure were explained to the patient. The patient was taken to procedure room placed in the supine position. The area over the right hip was cleaned using chlorhexidine as a cleansing solution. Using fluoroscopy guidance a 3 and half inch 22-gauge spinal needle was used to access the right hip joint without difficulty. After negative aspiration 3 cc of 1% lidocaine +3 cc of 0.25% Marcaine and 40 mg of Depo-Medrol was injected. Needle was withdrawn. Band-Aid applied. Patient tolerated procedure without difficulty. There are no complications. Plan and Disposition:: Patient was discharged without incident.
== END 2022-06-28 12:08 | disposition home or self-care (01) ==
LOC: SC.PAINP 11:12
PROVIDERS: PCP Nurse Practitioner Family; Visit Provider Nurse Anesthetist, Certified Registered
DX: M16.11 Unilateral primary osteoarthritis, right hip (principal); M25.551 Pain in right hip; G89.29 Other chronic pain
CPT/HCPCS: 20610; 77002; J1040

== ENCOUNTER → 2022-07-14 14:05 | Outpatient (POV) | payer MEDICARE, OTHER, SELFPAY ==
[2022-07-14 14:14] VITALS: BP 142/68; PULSE 77; RESP 20; O2SAT 96; BMI 18.7
--- NOTE | 2022-07-14 14:18 | EXP.PAIN.SOA ---
[facility] Pain Management SOAP Note Subjective:: This patient is a very pleasant 66-year-old male that comes our clinic today for follow-up visit after receiving a right intra-articular hip injection. Patient reports 90+ percent improvement terms of his overall hip pain. Patient no longer having difficulty with ambulation. Transitioning from sitting to standing much easier. Objective:: Patient is awake alert [place] x3. In no acute distress. Flexion-extension lumbar spine somewhat guarded secondary to pain. Deep tendon reflexes upper lower extremities normal. Motor strength upper and lower extremities normal. There is no gross sensory deficit. Gait is normal. Assessment:: Degenerative osteoarthritis right hip. Plan:: Patient will return to see us as needed. He will continue taking meloxicam as well. [facility] Disclaimer: The information contained in this section may have been updated after the patient was seen, as this information can be updated by other users. Medical History Bladder cancer Depression Family History (Updated 06/28/22 @ 11:36 by Rita Ramon RN) Other No significant family history Social History Smoking Status: Current every day smoker tobacco type: cigarettes packs per day: 1 second hand exposure: Yes alcohol intake: never substance use type: denies use current occupational status: retired Travel in the last 8 weeks: None household members: spouse housing: house current occupational exposures/hazards: No caffeine: No
== END ==
PROVIDERS: PCP Nurse Practitioner Family; Visit Provider Nurse Anesthetist, Certified Registered
DX: M16.11 Unilateral primary osteoarthritis, right hip (principal)
CPT/HCPCS: 99212; G0463

== ENCOUNTER → 2022-10-12 14:16 | Outpatient (CLI) | payer MEDICARE, OTHER, SELFPAY ==
--- NOTE | 2022-10-12 14:20 | XR_ITS ---
FINAL REPORT CLINICAL HISTORY: WHEEZING FINDINGS: TWO-VIEW CHEST The heart size is normal. There is pectus excavatum deformity. The lungs are clear. There is no pneumothorax. IMPRESSION: No acute cardiopulmonary process. Reviewed, Interpreted and Dictated by Blake Constantino III, MD Transcribed by Sheila Alberto Authenticated and [facility]
== END ==
PROVIDERS: PCP Nurse Practitioner Family; Visit Provider Nurse Practitioner Family
DX: R06.09 Other forms of dyspnea (principal); R06.2 Wheezing; M54.6 Pain in thoracic spine
CPT/HCPCS: 71046

== ENCOUNTER 2024-05-10 14:31 | Emergency (ER) | payer MEDICARE, OTHER, SELFPAY ==
--- NOTE | 2024-05-10 15:58 | ED_ITS ---
Discharge Plan Disposition Patient Disposition: Home, Self-Care Condition: Good Prescriptions Prescriptions: New methylprednisolone 4 mg Tablets,Dose Pack 4 mg PO DIRECTED 6 Days Qty: 21 0RF Rx Instructions: Take 1 pack as directed for 6 days cyclobenzaprine 5 mg tablet 5 mg PO BID PRN (Reason: muscle spasm) Qty: 10 0RF No Action sertraline [Zoloft] 25 mg tablet 37.5 mg PO Q24H omeprazole 20 mg capsule,delayed release(DR/EC) 20 mg PO ONCE folic acid 20 mg capsule 20 mg PO ONCE PRN (Reason: supplement) cetirizine [Zyrtec] 10 mg capsule 10 mg PO ONCE PRN (Reason: allergies) ferrous sulfate [Feosol] 325 mg (65 mg iron) tablet 325 mg PO ONCE meloxicam 15 MG tablet 15 mg PO DAILY Qty: 30 2RF tizanidine [Zanaflex] 4 mg tablet 4 mg PO HS Referrals Follow up/Referrals: Sebastian Rizvi DO [Staff Physician] - See instructions Ave Kelsey APRN [Primary Care Provider] - See instructions Activity Restrictions/Add. Instructions Additional Instructions/Restrictions: Rest the extremity. Take the medrol dose pack (steroids) as directed. The muscle relaxer (cyclobenzaprine--Flexeril) will make you drowsy, so don't drive or operate heavy machinery after taking it. Follow up with Dr. Rizvi (orthopedics). I put in a referral but you need to call his office and schedule an appointment. Follow up with your regular doctor. GO TO THE ER FOR ANY WORSENING SYMPTOMS Clinical Impressions Clinical Impression: Tendinopathy of right shoulder, Pain in right shoulder Instructions Patient Instructions: DI for Shoulder Tendinopathy, DI for Shoulder Pain, Cyclobenzaprine, Methylprednisolone Print Language Print Language: Surinamese Discharge ED Provider: Itz Ayala [facility] General Stated complaint: inflamation in back Time Seen by Provider: 05/10/24 15:57 History of Present Illness Provider Complaint: He states that for the past approx 2 weeks he has had right sided upper back pain and tenderness in the area of his right scapula. He denies any injury. He states that when he was young he fell on that part of his back. Since that distant injury, he has had periodic flare ups of pain and tenderness in this area. He states that he has been told in the past that he has arthritis in that part of his shoulder. He denies any radiation of pain. He denies any respiratory symptoms and chest pain. Related Data Home Medications ?Medication ?Instructions ?Recorded ?Confirmed cetirizine 10 mg capsule (Zyrtec) 10 mg PO ONCE PRN allergies 06/25/17 07/14/22 ferrous sulfate 325 mg (65 mg 325 mg PO ONCE Supplement 06/25/17 07/14/22 iron) tablet (Feosol) folic acid 20 mg capsule 20 mg PO ONCE PRN supplement 06/25/17 07/14/22 omeprazole 20 mg capsule,delayed 20 mg PO ONCE GERD 06/25/17 07/14/22 release sertraline 25 mg tablet (Zoloft) 37.5 mg PO Q24H Depression 06/25/17 07/14/22 tizanidine 4 mg tablet (Zanaflex) 4 mg PO HS muscle spasms 06/28/22 07/14/22 Previous Rx's ?Medication ?Instructions ?Recorded meloxicam 15 mg tablet 15 mg PO DAILY . #30 tabs 06/20/22 cyclobenzaprine 5 mg tablet 5 mg PO BID PRN muscle spasm #10 05/10/24 tabs methylprednisolone 4 mg tablets in 4 mg PO DIRECTED 6 days #21 tabs 05/10/24 a dose pack Allergies Allergy/AdvReac Type Severity Reaction Status Date / Time meperidine (From Demerol) Allergy Intermediate I-HIVES/ITC Verified 06/28/22 11:39 H oxycodone (From Percocet) Allergy Intermediate I-HIVES/ITC Verified 06/28/22 11:39 H PFSH PFS Disclaimer: The information contained in this section may have been updated after the patient was seen, as this information can be updated by other users. Medical History (Updated 05/10/24 @ 17:04 by Itz Ayala APRN) Bladder cancer Depression Family History (Updated 06/28/22 @ 11:36 by Rita Ramon RN) Other No significant family history Social History Smoking Status: Current every day smoker tobacco type: cigarettes packs per day: 1 second hand exposure: Yes alcohol intake: never substance use type: denies use current occupational status: retired Travel in the last 8 weeks: None household members: spouse housing: house current occupational exposures/hazards: No caffeine: No Have you lived/traveled outside [place] in past 30 days?: No Contact w/someone who lives/traveled outside [place] past 30 days?: No Exposure to someone with infectious disease in past 14 days?: No Do you have a fever (greater than 100.4 F or 38 C)?: No Have you tested positive for COVID-19: No Exposed to someone with COVID-19 in past 14 days?: No Do you have a sore throat?: No Do you have a cough?: No Do you have any weakness?: No Do you have any diarrhea?: No Are you experiencing any unusual bleeding?: No Do you have any muscle aches/pain?: No Do you have any abdominal pain?: No Are you experiencing loss of taste or smell?: No ROS Obtained: Yes All systems reviewed & no additional complaints except as documented Constitutional Constitutional: Denies chills and Denies fever(s) Eyes Eyes: Denies eye discharge ENT Ears, Nose, Mouth, and Throat: Denies dizziness, Denies otalgia, Denies neck pain and Denies sore throat Cardiovascular Cardiovascular: Denies chest pain Respiratory Respiratory: Denies shortness of breath, Denies chest congestion, Denies cough, Denies stridor and Denies wheezing Gastrointestinal Gastrointestingal: Denies nausea or vomiting Musculoskeletal Musculoskeletal: Reports as per HPI, Reports back pain and Denies neck pain Integumentary/Breasts Skin/Breast: Denies redness, Denies rash and Denies wounds Neurologic Neurologic: Denies dizziness and Denies paresthesias Allergic/Immunologic Allergic/Immunologic: Denies wheezing Physical Exam General General appearance: alert and in no apparent distress Head Head exam: atraumatic, normocephalic and normal inspection Eye Eye exam: Present normal appearance, PERRL and EOMI ENT ENT exam: Present normal exam, normal oropharynx, mucous membranes moist, TM's normal bilaterally and normal external ear exam Neck Neck exam: Present normal inspection, full ROM and trachea midline; Absent meningismus or lymphadenopathy Chest Chest inspection: Present normal inspection and symmetric chest wall rise; Absent tenderness Respiratory Respiratory exam: Present normal lung sounds bilaterally; Absent respiratory distress Cardiovascular Cardiovascular exam: Present regular rate and normal rhythm; Absent JVD Abdominal Exam Abdominal exam: Present soft and normal bowel sounds; Absent distention, tenderness or guarding Extremities Exam Extremities exam: Present normal capillary refill; Absent calf tenderness Expanded Upper Extremity Exam Right: Shoulder exam: Present tenderness; Absent full ROM, swelling, abrasion, laceration, ecchymosis, deformity, crepitus, dislocation, erythema or tenderness over AC joint Arm exam: Present normal inspection and full ROM; Absent tenderness Elbow exam: Present normal inspection and full ROM; Absent tenderness, pain w/ pronation/supination or tenderness over radial head Forearm/Wrist exam: Present normal inspection and full ROM; Absent tenderness Hand exam: Present normal inspection and full ROM; Absent tenderness Neuromotor exam: Normal wrist extension, thumb opposition, thumb IP flexion and fingers 2-5 abduction Neurosensory exam: Normal radial nerve, ulnar nerve and median nerve Vascular exam: Normal capillary refill, radial pulse and ulnar pulse Back Exam Back exam: Present normal inspection; Absent tenderness Neurological Exam Neurological exam: Present alert and oriented X3 Psychiatric Psychiatric exam: Present normal affect and normal mood Skin Skin exam: Present warm, dry, intact and normal color Lymphatic Lymphatic Findings: no adenopathy Medical Decision Making Medical Records Medical records reviewed: No I reviewed the patient's medical records. Screening: Per USPSTF and CDC recommendations, given the prevalence of disease in our region, it is our hospital?s policy to screen for HIV and viral Hepatitis for all patients aged 18 and over and those with ongoing risk factors. Jaun Inquiry Pt receiving controlled substance: No
[2024-05-10 16:05] VITALS: BP 112/57; PULSE 77; RESP 19; TEMP 36.5; O2SAT 97; BMI 19.9
[2024-05-10 16:32] LABS: Apearance,Urine Clear (Clear); Bilirubin,Urine Negative (Negative); Blood, Urine Negative (Negative); Color,Urine Dark Yellow (Yellow); Glucose,Urine (UA) Negative (Negative); Ketones,Urine Negative (Negative); PH,Urine 5.5 (5.0-8.5); Protein,Urine Negative (Negative); Specific Gravity, Urine 1.025 (1.005-1.030); UTC Leukocyte Esterase,Urine Negative (Negative); UTC Nitrate,Urine Negative (Negative); Urobilinogen,Urine 0.2 EU/dl (0.2)
[2024-05-10 17:00] VITALS: BP 112/57; PULSE 77; RESP 19; TEMP 36.5; O2SAT 97
== END 2024-05-10 17:11 | disposition home or self-care (01) ==
PROVIDERS: Emergency Provider Nurse Practitioner Family; PCP Nurse Practitioner Family
DX: M25.511 Pain in right shoulder (principal); M67.911 Unspecified disorder of synovium and tendon, right shoulder
CPT/HCPCS: 81003; 99213; G0381

== ENCOUNTER 2025-01-15 15:06 | Outpatient (CLI) | payer MEDICARE, OTHER, SELFPAY ==
[2025-01-15 17:05] LABS: Microscopic, Urine URINE MICROSCOPIC (MICROSCOPIC)
[2025-01-15 17:28] LABS: Hematocrit 35.8 % (42.0-52.0); Hemoglobin 12.2 g/dL (14.1-18.0); Immature Granulocytes % 0.8 %; Mean Corpuscular HGB Conc 34.1 g/dL (31.8-35.4); Mean Corpuscular Hemoglobin 31.9 pg (27.0-31.2); Mean Corpuscular Volume 93.5 fl (80-94); Nucleated Red Blood Cells % 0 %; Platelet Count 239 K/mm3 (142-424); Red Blood Count 3.83 M/mm3 (4.60-6.20); Red Cell Distribution Width-SD 47.4 fL; White Blood Count 9.0 K/mm3 (4.8-10.8)
[2025-01-15 18:42] LABS: Alanine Aminotransferase 15 U/L (12-78); Albumin Level 4.1 g/dl (3.5-5.0); Albumin/Globulin Ratio 1.6 (1.1-1.8); Alkaline Phosphatase 67 U/L (38-126); Anion Gap 13.6 mEq/L (5-15); Aspartate Amino Transferase 21 U/L (17-59); Bilirubin,Total 1.0 mg/dl (0.2-1.3); Blood Urea Nitrogen 8 mg/dl (9-20); Calcium 8.8 mg/dl (8.4-10.2); Carbon Dioxide 27 mmol/L (22.0-30.0); Chloride 98 mmol/L (98-107); Creatinine,Serum 0.90 mg/dl (0.66-1.25); Estimated Glomerular Filt Rate 84 ml/min (>60); GFR (African American) 102 ML/MIN (>60); Globulin 2.5 g/dL (1.3-3.2); Glucose 66 mg/dl (74-100); Potassium 4.6 mmoL/L (3.5-5.1); Sodium 134 mmol/L (136-145); Total Protein,Serum 6.6 g/dl (6.3-8.2)
[2025-01-15 19:14] LABS: Bilirubin,Urine Negative (Negative); Color,Urine YELLOW (Yellow); Glucose,Urine (UA) Negative (Negative); Ketones,Urine Negative (Negative); Leukocyte Esterase,Urine TRACE (Negative); PH,Urine 5.5 (5.0-8.5); Protein,Urine Negative (Negative); Specific Gravity, Urine 1.015 (1.005-1.030); Urobilinogen,Urine 0.2 EU/dl (0.2)
[2025-01-15 20:43] LABS: Ferritin 353 ng/ml (17.9-464)
[2025-01-15 21:13] LABS: Bacteria,Urine 2+ /lpf
== END 2025-01-15 23:59 ==
LOC: LAB.DROPOF 01-17 00:04
PROVIDERS: PCP Nurse Practitioner Family; Visit Provider Nurse Practitioner Family
DX: D64.9 Anemia, unspecified (principal); N39.0 Urinary tract infection, site not specified; Z11.4 Encounter for screening for human immunodeficiency virus [HIV]
CPT/HCPCS: 80053; 81001; 82728; 85025; 87086; 87389

== ENCOUNTER 2025-01-20 15:59 | Outpatient (CLI) | payer MEDICARE, OTHER, SELFPAY | END 2025-01-20 23:59 | disposition home or self-care (01) | LOC: LAB.DROPOF 01-21 15:59 | PROVIDERS: PCP Nurse Practitioner Family; Visit Provider Nurse Practitioner Family | DX: R82.90 Unspecified abnormal findings in urine (principal) | CPT/HCPCS: 87086 ==